=== PATIENT | female | born 1985 | race Caucasian/White ===

== ENCOUNTER 2021-11-03 08:12 | Emergency (ER) | payer OTHER ==
[~2021-11-03] VITALS: Ht 170.2 cm; Wt 84.1 kg
[2021-11-03] MEDS ORDERED: SERT50TA29 (08:20)
[2021-11-03] MEDS ORDERED: GI COCKTAIL 50ML BTL(HYOSCYAMINE/MAALOX/LIDOCAINE VISCOUS)(1:3:1) PO ONE (11:10)
[2021-11-03] MEDS ORDERED: METH-1164 PO (12:59)
[2021-11-03] MEDS ORDERED: NAPR-837 PO (12:59)
[2021-11-03 13:07] VITALS: BP 128/78
== END 2021-11-03 13:09 | disposition home or self-care (01) ==
LOC: M ED 08:12
DX: M51.26 Other intervertebral disc displacement, lumbar region (principal); M62.830 Muscle spasm of back; K21.9 Gastro-esophageal reflux disease without esophagitis; F41.9 Anxiety disorder, unspecified

== ENCOUNTER 2022-12-05 07:46 | Day surgery (SDC) | payer OTHER ==
[~2022-12-05] VITALS: Ht 170.2 cm; Wt 87.2 kg
[~2022-12-05 07:46] MED LIST: LIDOCAINE 2% 100MG/5ML SDV (FOR ANES.) As Ordered ONE; METH-1164 PO; NAPR-837 PO; NS 1,000 ML IV ONE; SERT50TA29; propofoL 200 MG/20 ML VIAL As Ordered ONE
[2022-12-05] MEDS ORDERED: ONE-1TAB PO (07:59)
[2022-12-05] MEDS ORDERED: propofoL 200 MG/20 ML VIAL As Ordered ONE (08:49)
[2022-12-05 09:05] VITALS: TEMP 96.6
[2022-12-05 09:31] VITALS: BP 113/68; O2SAT 99
== END 2022-12-05 09:34 | disposition home or self-care (01) ==
LOC: M OPP 07:46
PROVIDERS: ATTEND Internal Medicine Gastroenterology
DX: Z12.11 Encounter for screening for malignant neoplasm of colon (principal); Z86.010 Personal history of colon polyps; Z80.0 Family history of malignant neoplasm of digestive organs; K63.5 Polyp of colon; K64.4 Residual hemorrhoidal skin tags; K64.8 Other hemorrhoids

== ENCOUNTER → 2023-12-17 | Outpatient (CLI) | payer OTHER ==
[~2023-12-17] MED LIST changes: +ISOVUE-370 76% 100ML VIAL As Ordered ONE; -LIDOCAINE 2% 100MG/5ML SDV (FOR ANES.) As Ordered ONE; +MULT18TA PO; -NS 1,000 ML IV ONE; -propofoL 200 MG/20 ML VIAL As Ordered ONE
== END ==
LOC: M RAD 15:48
PROVIDERS: ATTEND Surgery
DX: S30.1XXA Contusion of abdominal wall, initial encounter (principal); X58.XXXA Exposure to other specified factors, initial encounter; Y99.9 Unspecified external cause status; Y92.9 Unspecified place or not applicable
CPT/HCPCS: 74177; Q9967